=== PATIENT | female | born 1940 | race Caucasian/White ===

== ENCOUNTER 2020-02-21 14:28 | Outpatient (CLI) | payer MEDICARE, SELFPAY ==
--- NOTE | ~2020-02-21 | CT_ITS ---
EXAMINATION: CT soft tissue neck w con EXAM DATE: 02/21/2020 15:44 INDICATION: Neck mass, swollen nodes left side of neck. History of breast cancer. TECHNIQUE: Spiral CT of the neck was performed following intravenous injection of 75 mL Omnipaque 350 . Axial, coronal and sagittal images were reviewed. The dose-length product (DLP) for this examinat ion was 372.99 mGy-cm. The exposure was tailored according to patient size (auto mA exposure control ), and iterative reconstruction (ASIR) was used as additional dose reduction technique. There is no prior study for comparison. FINDINGS: The thyroid gland is unremarkable. The submandibular and parotid glands are symmetric. There is no cervical lymphadenopathy. There are no masses identified. The superior mediastinum is unremarkable. The airway is unremarkable. Parapharyngeal and pre-glottic fat planes are preserve d. The opacified vasculature is patent. Patient has had bilateral ocular lens surgery. Visualiz ed sinuses and mastoid air cells are well aerated. Left apical scarring. Mild emphysema. There is advanced cervical spondylosis. Severe left-sided mid cervical facet arthropathy. IMPRESSION: No cervical lymphadenopathy. Reviewed, dictated and finalized at location A.
[2020-02-21 15:34] LABS: Estimated Glomerular Filt Rate > 60
== END 2020-02-21 14:29 | disposition home or self-care (01) ==
DX: R22.1 Localized swelling, mass and lump, neck (principal)
CPT/HCPCS: 36415; 70491; Q9967

== ENCOUNTER 2020-07-21 10:14 | Outpatient (CLI) | payer MEDICARE, SELFPAY ==
[2020-07-21 10:59] LABS: Hematocrit 45.5 % (37.0-47.0); Hemoglobin 15.9 g/dL (12.0-15.0); Mean Corpuscular HGB Conc 34.9 g/dl (32-36); Mean Corpuscular Hemoglobin 31.4 pg (26-34); Mean Corpuscular Volume 89.9 fl (80-100); Mean Platelet Volume 8.8 fl (7.4-10.4); Platelet Count Result 242 k/mm3 (150-375); Red Blood Count 5.06 M/mm3 (4.2-5.4); Red Cell Distribution Width 12.3 % (11.5-14.5); White Blood Count 5.2 K/mm3 (4.5-10.0)
[2020-07-21 11:17] LABS: Alanine Aminotransferase 53 U/L (4-35); Albumin Level 4.6 g/dL (3.5-5.1); Alkaline Phosphatase 103 U/L (38-126); Anion Gap 7 mmol/L (8-16); Aspartate Amino Transferase 45 U/L (14-36); Bilirubin,Total 0.7 mg/dL (0.2-1.3); Blood Urea Nitrogen 12 mg/dL (7-17); Calcium 9.6 mg/dL (8.4-10.2); Carbon Dioxide 28 mmol/L (22-30); Chloride 103 mmol/L (98-107); Cholesterol 220 mg/dL (0-200); Estimated Glomerular Filt Rate > 60; Glucose 102 mg/dL (65-105); HDL Direct 108 mg/dL; Potassium 4.5 mmol/L (3.4-5.0); Sodium 138 mmol/L (137-145); Triglycerides 69 mg/dL (<150)
[2020-07-21 11:28] LABS: LDL Cholesterol Direct 97 mg/dL
[2020-07-21 11:50] LABS: Free T4 Free Thyroxine 1.41 ng/mL (0.78-2.19)
[2020-07-21 12:23] LABS: Folic Acid 16.3 ng/mL (2.76->20)
== END 2020-07-21 10:15 | disposition home or self-care (01) ==
PROVIDERS: PCP Physician Assistant; Visit Provider Physician Assistant
DX: E78.5 Hyperlipidemia, unspecified (principal); R53.83 Other fatigue; E03.9 Hypothyroidism, unspecified
CPT/HCPCS: 36415; 80053; 80061; 82607; 82746; 84439; 84443; 85027

== ENCOUNTER 2020-10-20 10:07 | Outpatient (CLI) | payer MEDICARE, SELFPAY ==
--- NOTE | ~2020-10-20 | MM_ITS ---
EXAMINATION: MM screening art RT w tammy HISTORY: Screening mammogram TECHNIQUE: Craniocaudal and mediolateral oblique 3-D tomosynthesis images were obtained and synthetic 2-D images were generated. CAD analysis was submitted and interpreted. COMPARISON: No prior mammogram is available for comparison at this institution. BREAST PARENCHYMAL COMPOSITION: There are scattered areas of fibroglandular density. FINDINGS: Left mastectomy reportedly at age 22. There is no evidence of suspicious mass, calcificatio n, or architectural distortion to suggest malignancy in either breast. There has been no suspicious i nterval change. IMPRESSION: 1. No mammographic evidence of malignancy. 2. Recommend routine screening mammography in one year. BI-RADS Category 2: Benign finding(s). Reviewed, dictated and finalized at location A. [employer]
== END 2020-10-20 10:08 | disposition home or self-care (01) ==
PROVIDERS: PCP Physician Assistant; Visit Provider Physician Assistant
DX: Z12.31 Encounter for screening mammogram for malignant neoplasm of breast (principal)
CPT/HCPCS: 77063; 77067

== ENCOUNTER 2020-11-06 01:50 | Outpatient (CLI) | payer MEDICARE, SELFPAY ==
[2020-11-06 20:00] LABS: SARS-CoV-2 RNA PCR Negative
== END 2020-11-06 01:51 | disposition home or self-care (01) ==
LOC: ANHCOVIDDT 01:50
PROVIDERS: PCP Physician Assistant; Visit Provider Internal Medicine Gastroenterology
DX: Z01.812 Encounter for preprocedural laboratory examination (principal); Z20.828 Contact with and (suspected) exposure to other viral communicable diseases
CPT/HCPCS: 87635; C9803; U0003

== ENCOUNTER 2020-11-09 02:08 | Day surgery (SDC) | payer MEDICARE, SELFPAY ==
[2020-11-04 09:07] VITALS: BMI 27.5
[2020-11-09 07:03] VITALS: BP 164/82; PULSE 98; RESP 16; TEMP 36.8; O2SAT 98
[2020-11-09] MEDS: LACTATED RINGERS 1,000 ML 150 ML IV CONT (07:30)
--- NOTE | 2020-11-09 07:49 | WPDANESEPPF ---
Anes - Initial Pre Proc Eval Procedure: Operation Date: 11/09/20 08:30 Proposed Procedures p Screening Colonoscopy - Asa Carlisle MD Date/Time: 11/09/20 07:49 Surgeon: Asa Carlisle MD Pre Op Diagnosis: neoplasm screening Patient Data Age: 80 Gender: F Height: 1.55 m Weight: 66 kg Last Vital Signs Temp 36.8 C 11/09/20 07:03 Pulse 98 11/09/20 07:03 Resp 16 11/09/20 07:03 BP 164/82 H 11/09/20 07:03 Pulse Ox 98 11/09/20 07:03 Allergies Allergy/AdvReac Type Severity Reaction Status Date / Time No Known Allergies Allergy Unverified 11/09/20 07:13 Home Medications Medication Instructions Recorded Confirmed Type ezetimibe 10 mg-simvastatin 10 mg 1 tablet PO DAILY 07/21/20 11/04/20 History tablet donepezil 5 mg tablet 5 mg PO DAILY #30 tablet 08/18/20 11/04/20 Rx peg 3350-electrolytes 236 240 ml PO Q10M #4000 ml 09/15/20 09/25/20 Rx gram-22.74 gram-6.74 gram-5.86 gram solution levothyroxine 50 mcg tablet 50 mcg PO DAILY #90 tablet 09/22/20 11/04/20 Rx Patient hx anesthesia problems: none Family hx anesthesia problems: none PMFSH Past Medical History Medical History Hx of breast cancer Thyroid disease Surgical History Surgical History Hx of mastectomy Family History Family History Father Acute myocardial infarction Sibling Breast cancer Social History Social History Smoking status: Never smoker Alcohol intake: current Drinks per week: 5 Substance use: never Substance use type: does not use Living arrangements: alone Spiritual care concerns: No Anes - Eval Final PreProcedure Day of Procedure 11/09/20 07:49 Patient weight: overweight Heart: regular rate and rhythm Lungs: clear to auscultation and normal air movement Airway: Mallampati scale class II Neurological: alert and oriented Last oral intake: >/= 8 hours ASA classification: III Emergent: no Anesthetic plan: proceed Anesthesia type and monitoring: general GIVS Informed Consent: The patient's anesthetic plan and its attendant risks and benefits were discussed with the patient/family/POA. Questions were solicited and answers provided to the satisfaction of the patient/family/POA.
--- NOTE | 2020-11-09 08:24 | PM.HPGS ---
History of Present Illness History of Present Illness Consent: Risks, benefits, and alternatives have been discussed and questions answered. Patient agrees to proceed with procedure. Chief complaint: neoplasm screening Narrative: Carmel Jarquin is a 80 year old female with positive cologuard, never had a colonoscopy Review of Systems Constitutional: Constitutional: Denies headache(s) and Denies weakness Eyes: Eyes: Denies blurry vision ENT: Reports Normal hearing present, Denies headache(s) and Denies neck pain Cardiovascular: Cardiovascular: Denies chest pain and Denies dyspnea Respiratory: Respiratory: Denies dyspnea Gastrointestinal: Gastrointestinal: Reports no additional gastrointestinal complaints Genitourinary: Genitourinary: Denies dysuria Musculoskeletal: Musculoskeletal: Denies neck pain Integumentary/Breasts: Skin/Breast: Denies dry skin Neurologic: Reports Normal hearing present, Denies headache(s) and Denies weakness Psychiatric: Psychiatric: Denies anxiety Endocrine: Endocrine: Denies change in body appearance Hematologic/Lymphatic: Hematologic/Lymphatic: Denies easy bleeding Allergic/Immunologic: Allergic/Immunologic: Denies urticaria PMFSH Past Medical History Medical History (Updated 11/09/20 @ 08:24 by Asa Carlisle MD) Hx of breast cancer Positive colorectal cancer screening using Cologuard test Thyroid disease Surgical History Surgical History Hx of mastectomy Family History Family History Father Acute myocardial infarction Sibling Breast cancer Social History Social History Smoking status: Never smoker Alcohol intake: current Drinks per week: 5 Substance use: never Substance use type: does not use Living arrangements: alone Spiritual care concerns: No Meds Home Medications and Allergies Home Medications Medication Instructions Recorded Confirmed Type ezetimibe 10 mg-simvastatin 10 mg 1 tablet PO DAILY 07/21/20 11/04/20 History tablet donepezil 5 mg tablet 5 mg PO DAILY #30 tablet 08/18/20 11/04/20 Rx peg 3350-electrolytes 236 240 ml PO Q10M #4000 ml 09/15/20 09/25/20 Rx gram-22.74 gram-6.74 gram-5.86 gram solution levothyroxine 50 mcg tablet 50 mcg PO DAILY #90 tablet 09/22/20 11/04/20 Rx Allergies Allergy/AdvReac Type Severity Reaction Status Date / Time No Known Allergies Allergy Unverified 11/09/20 07:13 Vital Signs Vital Signs - 24 hr 11/09/20 07:03 Temperature 98.2 F Pulse Rate 98 Respiratory Rate 16 Blood Pressure 164/82 H Pulse Oximetry 98 Exam Const: General: comfortable and no acute distress HENMT: General nose exam: Normal nares present Eyes: General: appearance normal, both eyes and all related structures Neck: Neck: no JVD Resp: Auscultation: clear to auscultation bilaterally Cardio: Rate: regular rate Rhythm: regular rhythm GI: Inspection: non-distended GI Palp: Yes Soft to palpation Skin: General skin exam: normal color Neuro: General: gait normal Speech: normal speech Extrem: General: normal to inspection Psych: Mental Status: mental status grossly normal Assessment and Plan Assessment and plan (1) Positive colorectal cancer screening using Cologuard test: Code(s): R19.5 - Other fecal abnormalities Status: Acute Assessment and Plan: will proceed with colonoscopy
[2020-11-09 09:04] VITALS: BP 145/74; PULSE 60; RESP 20; O2SAT 100
[2020-11-09 09:14] VITALS: BP 142/85; PULSE 55; RESP 18; O2SAT 100
[2020-11-09 09:24] VITALS: BP 160/78; PULSE 60; RESP 20; O2SAT 100
--- NOTE | 2020-11-09 09:35 | SUR.PHASEII ---
PT SLIGHT CONFUSION WITH MULTIPLE QUESTIONS, PT ASKED THIS RN TO EXPLAIN DISCHARGE INSTRUCTIONS TO SISTER CONCETTA, CONCETTA GIVEN DISCHARGE INSTRUCTIONS WITH PT PRESENT AND STATES UNDERSTANDING.
== END 2020-11-09 09:35 | disposition home or self-care (01) ==
PROVIDERS: PCP Physician Assistant; Visit Provider Internal Medicine Gastroenterology
PROC: 0DJD8ZZ Inspection of Lower Intestinal Tract, Via Natural or Artificial Opening Endoscopic (ICD-10-PCS; CPT 45378; principal; 2020-11-09 08:30)
DX: Z12.11 Encounter for screening for malignant neoplasm of colon (principal); R19.5 Other fecal abnormalities; K57.30 Diverticulosis of large intestine without perforation or abscess without bleeding; K63.5 Polyp of colon; K64.4 Residual hemorrhoidal skin tags; K64.8 Other hemorrhoids; E03.9 Hypothyroidism, unspecified; Z85.3 Personal history of malignant neoplasm of breast
CPT/HCPCS: 45390; 88305; J2704; J7120

== ENCOUNTER 2021-09-15 10:25 | Outpatient (CLI) | payer MEDICARE, SELFPAY ==
[2021-09-15 10:49] LABS: Hemoglobin 15.9 g/dL (12.0-15.0); Mean Corpuscular HGB Conc 34.6 g/dl (32-36); Mean Corpuscular Hemoglobin 32.9 pg (26-34); Mean Corpuscular Volume 95.2 fl (80-100); Mean Platelet Volume 9.1 fl (7.4-10.4); Platelet Count Result 211 k/mm3 (150-375); Red Blood Count 4.83 M/mm3 (4.2-5.4); Red Cell Distribution Width 12.4 % (11.5-14.5); White Blood Count 4.4 K/mm3 (4.5-10.0)
[2021-09-15 11:17] LABS: LDL Cholesterol Direct 205 mg/dL
[2021-09-15 11:32] LABS: Alanine Aminotransferase 27 U/L (4-35); Albumin Level 4.5 g/dL (3.5-5.1); Alkaline Phosphatase 92 U/L (38-126); Anion Gap 8 mmol/L (8-16); Aspartate Amino Transferase 31 U/L (14-36); Bilirubin,Total 0.7 mg/dL (0.2-1.3); Blood Urea Nitrogen 13 mg/dL (7-17); Calcium 9.2 mg/dL (8.4-10.2); Carbon Dioxide 26 mmol/L (22-30); Chloride 104 mmol/L (98-107); Estimated Glomerular Filt Rate > 60; Glucose 100 mg/dL (65-110); HDL Direct 109 mg/dL; Potassium 4.1 mmol/L (3.4-5.0); Sodium 138 mmol/L (137-145); Triglycerides 133 mg/dL (<150)
[2021-09-15 11:37] LABS: Free T4 Free Thyroxine 1.41 ng/mL (0.78-2.19)
[2021-09-15 13:30] LABS: Cholesterol 364 mg/dL (0-200)
== END 2021-09-15 10:26 | disposition home or self-care (01) ==
LOC: ANHLAB 10:28
PROVIDERS: PCP Physician Assistant; Visit Provider Physician Assistant
DX: E78.5 Hyperlipidemia, unspecified (principal); E03.9 Hypothyroidism, unspecified; R53.83 Other fatigue
CPT/HCPCS: 36415; 80053; 80061; 82607; 82746; 84439; 84443; 85027